=== PATIENT | male | born 1975 | race Caucasian/White ===

== ENCOUNTER 2016-07-08 12:19 | Emergency (ER) | payer OTHER ==
[~2016-07-08] VITALS: Ht 160 cm; Wt 65.0 kg
[2016-07-08 12:25] VITALS: Ht 160 cm; Wt 65.0 kg
--- NOTE | 2016-07-08 12:33 | ERA ---
ER Documentation Chief Complaint Date/Time DATE: 07/08/16 TIME: 12:32 Chief Complaint ETOH AND CHEST PAIN HPI The patient is a 40-year-old male, presenting to the ER because of left-sided chest pain , associated with shortness of breath for more than 2 weeks. There are no aggravating or relieving factor. He denies fever, chills, syncope, near syncope, seizure, cough, abdominal pain, vomiting, dysuria, diarrhea. He does not smoke, drinks regularly, denies illicit drug Past medical history: Alcohol dependence, seizure Past surgical history: Neck due to trauma ROS All systems reviewed and are negative except as per history of present illness. Medications Home Meds No Active Prescriptions or Reported Meds Allergies Allergies: Coded Allergies: Unable to Assess (Verified Allergy, Severe, 12/22/15) PMhx/Soc History of Surgery: No Anesthesia Reaction: No Hx Neurological Disorder: No Hx Respiratory Disorders: No Hx Cardiac Disorders: No Hx Psychiatric Problems: No Hx Miscellaneous Medical Probl: Yes (DM) Hx Alcohol Use: Yes Hx Substance Use: Yes Hx Tobacco Use: No Physical Exam Vitals Vital Signs Date Time Temp Pulse Resp B/P Pulse Ox O2 Delivery O2 Flow Rate FiO2 07/08/16 13:26 98.0 85 16 124/87 97 Room Air 07/08/16 13:01 Nasal Cannula 2 07/08/16 12:25 98.1 112 18 114/64 92 Physical Exam Const: No acute distress. Head: Atraumatic. Eyes: Normal Conjunctiva. ENT: Normal External Ears, Nose and Mouth. Neck: Full range of motion. No meningismus. Resp: Clear to auscultation bilaterally. Cardio: Regular but tachycardic Abd: Soft, non distended, normal bowel sounds, non tender. Skin: No petechiae or rashes. Back: No midline or flank tenderness. Ext: No cyanosis, or edema. Neur: Awake and alert. No focal deficit Psych: Normal Mood and Affect. Result Diagram: 07/08/16 1340 07/08/16 1340 Results 24 hrs Laboratory Tests Test 07/08/16 13:40 White Blood Count 6.910^3/ul Red Blood Count 4.2910^6/ul Hemoglobin 14.3g/dl Hematocrit 42.5% Mean Corpuscular Volume 99.1fl Mean Corpuscular Hemoglobin 33.3pg Mean Corpuscular Hemoglobin Concent 33.6g/dl Red Cell Distribution Width 12.4% Platelet Count 40258^3/UL Mean Platelet Volume 9.7fl Neutrophils % 49.6% Lymphocytes % 37.2% Monocytes % 8.0% Eosinophils % 3.9% Basophils % 1.2% Nucleated Red Blood Cells % 0.0/100WBC Neutrophils # 3.410^3/ul Lymphocytes # 2.610^3/ul Monocytes # 0.610^3/ul Eosinophils # 0.310^3/ul Basophils # 0.110^3/ul Nucleated Red Blood Cells # 0.010^3/ul Prothrombin Time 14.0Sec Prothrombin Time Ratio 1.1 INR International Normalized Ratio 1.08 Activated Partial Thromboplast Time 28.1Sec Sodium Level 141mmol/L Potassium Level 4.1mmol/L Chloride Level 102mmol/L Carbon Dioxide Level 25mmol/L Anion Gap 18 Blood Urea Nitrogen 17mg/dl Creatinine 0.87mg/dl Glucose Level 97mg/dl Calcium Level 8.0mg/dl Magnesium Level 2.1mg/dl Total Bilirubin 0.1mg/dl Direct Bilirubin 0.00mg/dl Indirect Bilirubin 0.1mg/dl Aspartate Amino Transf (AST/SGOT) 140IU/L Alanine Aminotransferase (ALT/SGPT) 127IU/L Alkaline Phosphatase 91IU/L Troponin I < 0.012ng/ml Total Protein 8.2g/dl Albumin 4.1g/dl Globulin 4.10g/dl Albumin/Globulin Ratio 1.00 Lipase 73U/L Phenytoin (Dilantin) Level < 3.0ug/ml Ethyl Alcohol Level 364.0mg/dl Current Medications Medications (Trade) Dose Ordered Sig/Safia Route PRN Reason Start Time Stop Time Status Last Admin Dose Admin Sodium Chloride (NS) 1,000 ml @ 1,000 mls/hr Q1H ONCE IV 07/08/16 13:00 07/08/16 13:59 DC 07/08/16 13:02 Ketorolac Tromethamine (Toradol) 30 mg ONCE STAT IV 07/08/16 12:46 07/08/16 12:47 DC 07/08/16 13:01 Procedures/MDM EKG: Read by emergency physician Rate/Rhythm: Sinus tachycardia 170 beats/min QRS, ST, T-waves: No ST elevation, no T inversion, nonspecific T abnormality Impression: Abnormal EKG [place] [id number] Radiology Main Line: [phone] DIAGNOSTIC IMAGING REPORT Patient: LAURITA SANCHEZ : 1975 Age: 40 Sex: M MR #: [id number] DOS: 07/08/16 0000 Ordering MD: LISA SUTHERLAND MD Location: E/R Room/Bed: PROCEDURE: XR Chest. CLINICAL INDICATION: Chest pain. Catheter overlying the left internal jugular vein seen on prior chest radiograph. TECHNIQUE: Single frontal view. COMPARISON: Prior study done earlier the same day which demonstrated a catheter overlying the left internal jugular vein. FINDINGS: The lungs are clear. The heart size is normal. Previously noted catheter overlying the left internal jugular vein is not present indicating it was outside the patient. There is no pleural effusion. There is no pneumothorax. IMPRESSION: 1. Normal chest radiograph. 2. There is no left internal jugular vein catheter. RPTAT: QQ .Lisa Sutherland MD, MD Date Time Electronically viewed and signed by .Lisa Sutherland MD, MD on 07/08/2016 17:51 .R/ CC: LISA SUTHERLAND MD MEDICAL MAKING DECISION: The patient is a 40-year-old male, presenting with acute chest pain, most likely due to acute anxiety and acute alcohol intoxication. He was treated with 1 L normal saline for clinical dehydration, Toradol 30 mg IV for pain with good response. The differential diagnoses considered include but are not limited to acute coronary syndrome, acute myocardial infarction, pericarditis, pulmonary embolism , aortic dissection, pneumonia, pleural effusion, pneumothorax, GERD, chest wall pain. Departure Diagnosis: Primary Impression: Chest pain Additional Impressions: Alcoholic intoxication Transaminitis Condition: Stable Comments He eloped from the emergency department CODY CARDENAS MD Jul 08, 2016 12:33
[2016-07-08] MEDS ORDERED: KETOROLAC 30 MG INJ IV STA (12:46)
[2016-07-08] MEDS ORDERED: SOD CHLORIDE 0.9% 1,000 ML IV ONE (13:00)
[2016-07-08 13:26] VITALS: BP 124/87; PULSE 85; RESP 16; TEMP 98
--- NOTE | 2016-07-08 13:48 | RADRPT ---
PROCEDURE: XR Chest. CLINICAL INDICATION: Chest pain. TECHNIQUE: PA and Lateral views of the chest were obtained. COMPARISON: Chest x-ray 11/2013. FINDINGS: The soft tissues are normal. The bony elements are normal. The heart, cardiomediastinal silhouette and hilar structures are normal. The pulmonary vasculature is normal. There is a left-sided aorta. The lungs are clear. A central venous catheter enters from right internal jugular approach with its tip projecting at the level of the aortic arc shaped. Proper positioning cannot be confirmed from this view. No pneumothorax is identified. IMPRESSION: 1. There is no evidence of active cardiopulmonary disease. 2. There is a central venous catheter entering from a left internal jugular approach with its tip p rojecting at the level of the aortic arch. Precise positioning is indeterminate without the benefit of a lateral view. 3. No pneumothorax is identified. RPTAT:AAJJ Physician Nikhil Date Time Electronically viewed and signed by Betito Leon Physician on 07/08/2016 13:48 MARCIAL/
[2016-07-08 13:49] LABS: ADD SCAN DIFF NO
[2016-07-08 13:55] LABS: BASOPHIL # 0.1 10^3/ul (0.0-0.1); BASOPHILS % 1.2 % (0.0-2.0); EOSINOPHILS # 0.3 10^3/ul (0.0-0.5); EOSINOPHILS % 3.9 % (0.0-7.0); HEMATOCRIT 42.5 % (42.0-52.0); HEMOGLOBIN 14.3 g/dl (14.0-18.0); LYMPHOCYTES # 2.6 10^3/ul (0.8-2.9); LYMPHOCYTES % 37.2 % (15.0-51.0); MEAN CORPUSCULAR HEMOGLOBIN 33.3 pg (29.0-33.0); MEAN CORPUSCULAR HGB CONC 33.6 g/dl (32.0-37.0); MEAN CORPUSCULAR VOLUME 99.1 fl (82.0-101.0); MEAN PLATELET VOLUME 9.7 fl (7.4-10.4); MONOCYTE # 0.6 10^3/ul (0.3-0.9); NEUTROPHIL # 3.4 10^3/ul (1.6-7.5); NEUTROPHILS % 49.6 % (39.0-77.0); PLATELET COUNT 289 10^3/UL (140-415); RED BLOOD COUNT 4.29 10^6/ul (4.70-6.10); RED CELL DISTRIBUTION WIDTH 12.4 % (11.5-14.5); WHITE BLOOD COUNT 6.9 10^3/ul (4.8-10.8)
[2016-07-08 14:04] LABS: INR 1.08; PT RATIO 1.1
[2016-07-08 14:05] LABS: PARTIAL THROMBOPLASTIN TIME 28.1 Sec (25.0-35.0)
[2016-07-08 14:09] LABS: CHLORIDE 102 mmol/L (97-110); SODIUM 141 mmol/L (135-144)
[2016-07-08 14:10] LABS: ALBUMIN 4.1 g/dl (3.3-4.9); POTASSIUM 4.1 mmol/L (3.5-5.1)
[2016-07-08 14:13] LABS: ALANINE AMINOTRANSFERASE 127 IU/L (13-69); ALKALINE PHOSPHATASE 91 IU/L (42-121); ANION GAP 18 (8-16); ASPARTATE AMINO TRANSFERASE 140 IU/L (15-46); BILIRUBIN,INDIRECT 0.1 mg/dl (0-1.1); BILIRUBIN,TOTAL 0.1 mg/dl (0.2-1.3); BLOOD UREA NITROGEN 17 mg/dl (7-20); CARBON DIOXIDE 25 mmol/L (21-31); CREATININE 0.87 mg/dl (0.61-1.24); GLUCOSE 97 mg/dl (70-220); TOTAL PROTEIN 8.2 g/dl (6.1-8.1)
[2016-07-08 14:14] LABS: MAGNESIUM 2.1 mg/dl (1.7-2.5)
[2016-07-08 14:47] LABS: TROPONIN-I < 0.012 ng/ml (0.00-0.12)
--- NOTE | 2016-07-08 17:51 | RADRPT ---
PROCEDURE: XR Chest. CLINICAL INDICATION: Chest pain. Catheter overlying the left internal jugular vein seen on prior c hest radiograph. TECHNIQUE: Single frontal view. COMPARISON: Prior study done earlier the same day which demonstrated a catheter overlying the left internal jugular vein. FINDINGS: The lungs are clear. The heart size is normal. Previously noted catheter overlying the left internal jugular vein is not present indicating it was outside the patient. There is no pleural effusion. There is no pneumothorax. IMPRESSION: 1. Normal chest radiograph. 2. There is no left internal jugular vein catheter. RPTAT: QQ .Jorge Rothman MD, MD Date Time Electronically viewed and signed by .Jorge Rothman MD, MD on 07/08/2016 17:51 .R/
== END 2016-07-08 13:30 | disposition left against medical advice (07) ==
LOC: E/R 12:19
DX: R07.9 Chest pain, unspecified (principal); R74.0 Nonspecific elevation of levels of transaminase and lactic acid dehydrogenase [LDH]; E11.9 Type 2 diabetes mellitus without complications
CPT/HCPCS: 71010; 80053; 80185; 80306; 83690; 83735; 84484; 85025; 85610; 85730; 93005; 96374; 99285; J1885; J7030

== ENCOUNTER 2017-06-02 12:31 | Emergency (ER) | END 2017-06-03 08:20 | disposition home or self-care (01) ==

== ENCOUNTER 2017-10-14 18:37 | Emergency (ER) | END 2017-10-14 18:59 | disposition left against medical advice (07) ==

== ENCOUNTER 2017-12-18 21:53 | Inpatient (IN) | END 2017-12-21 05:09 | disposition left against medical advice (07) | DRG 432 ==

== ENCOUNTER 2017-12-22 06:45 | Emergency (ER) | END 2017-12-22 13:47 | disposition home or self-care (01) ==

== ENCOUNTER 2018-01-16 12:52 | Inpatient (IN) | END 2018-01-16 20:25 | disposition left against medical advice (07) | DRG 683 ==